=== PATIENT | male | born 1960 | race Caucasian/White ===

== ENCOUNTER → 2023-12-03 | Outpatient (CLI) | payer MEDICARE ==
--- NOTE | 2023-12-03 12:29 | US ---
EXAMINATION TYPE: US arterial LE single level DATE OF EXAM: 12/03/2023 9:06 AM CLINICAL INDICATION: Male, 63 years old with history of L97.822 NON-PRESSURE CHRONIC ULCER OF OTHER P ART O; left BK amputation, all 5 digits on the right foot amputated also, ulcer on stump of left leg History of: Smoker: previous Hypertension: y Diabetic: y Hyperlipidemia: n TIA/CVA: n Previous Vascular Surgery: n CAD: n SC: n Vascular Ulcers: y Claudication: n Gangrene: n Doppler Waveforms: Right: Multiphasic Left: Multiphasic Right Brachial Pressure: 163 Left Brachial Pressure: 171 Ankle-Brachial Indices: Right: CNO Left thigh due to amputation: CNO Toe Brachial Indices: Right: amputated Left: amputated IMPRESSION: No brachial ankle indices are able to be obtained.
== END | disposition home or self-care (01) ==
LOC: RADUSWWP 08:39
PROVIDERS: ATTEND Thoracic Surgery (Cardiothoracic Vascular Surgery)
DX: E08.622 Diabetes mellitus due to underlying condition with other skin ulcer (principal); L97.822 Non-pressure chronic ulcer of other part of left lower leg with fat layer exposed; I10 Essential (primary) hypertension; E78.5 Hyperlipidemia, unspecified; T87.89 Other complications of amputation stump
CPT/HCPCS: 93922

== ENCOUNTER → 2023-12-12 | Outpatient (CLI) | payer MEDICARE ==
--- NOTE | 2023-12-12 11:54 | XR ---
EXAMINATION TYPE: XR knee complete LT DATE OF EXAM: 12/12/2023 COMPARISON: None HISTORY: 63-year-old male L KNEE/LEG XR M25.562 XR KNEE/LEG L TECHNIQUE: AP, oblique, and lateral views FINDINGS: Meniscal chondrocalcinosis. Generalized muscle atrophy. Below the knee amputation is noted. There may be some shallow ulceration of the anterior stump margin. No klaudia underlying lytic bony destruction is seen. Vascular calcifications. Mild anterior infrapatellar soft tissue swelling. No acute fracture seen. IMPRESSION: 1. BKA. There may be shallow soft tissue ulceration along the anterior stump margin. No klaudia radiogr aphic findings of underlying osteomyelitis at this time. Radiographic follow-up if clinically indicat ed. 2. Mild anterior infrapatellar soft tissue swelling.
== END | disposition home or self-care (01) ==
LOC: RADXRMAIN 11:21
PROVIDERS: ATTEND Surgery
DX: T87.89 Other complications of amputation stump (principal); M79.89 Other specified soft tissue disorders; Z89.512 Acquired absence of left leg below knee

== ENCOUNTER 2024-01-17 06:14 | Inpatient (IN) | payer MEDICARE ==
[2024-01-17] MEDS ORDERED: droPERidol 5 MG/2 ML VIAL IVP ONE (06:44)
[2024-01-17] MEDS: LIDOCAINE 1% (10MG/ML) FOR IV START INTRADERMA PRN (07:00)
[2024-01-17] MEDS: LACTATED RINGERS 1,000 ML IV SCH (07:00)
[2024-01-17] MEDS ORDERED: HYDROmorphone 0.5 MG/0.5 ML SYRINGE IVP PRN (07:00)
[2024-01-17] MEDS: DEXAMETHASONE SOD PHOSPHATE 4 MG/ML 1 ML VIAL IV ONE (07:15)
[2024-01-17] MEDS: ONDANSETRON 4 MG/2 ML VIAL IVP ONE (07:15)
[2024-01-17 07:18] LABS: Basophils # (A) 0.1 k/uL (0-0.2); Basophils % (A) 0 %; Eosinophils # (A) 0.1 k/uL (0-0.7); Eosinophils % (A) 1 %; HCT 48.1 % (39.0-53.0); HGB 16.3 gm/dL (13.0-17.5); Lymphocytes # (A) 0.9 k/uL (1.0-4.8); Lymphocytes % (A) 5 %; MCH 29.7 pg (25.0-35.0); MCHC 33.9 g/dL (31.0-37.0); MCV 87.7 fL (80.0-100.0); Mean Platelet Volume 8.9; Monocytes % (A) 6 %; Neutrophils % (A) 87 %; Platelet Count 189 k/uL (150-450); RBC 5.48 m/uL (4.30-5.90); RDW 15.3 % (11.5-15.5); WBC 17.3 k/uL (3.8-10.6)
[2024-01-17 07:21] LABS: Glucose,Whole Blood 187 mg/dL (70-110)
[2024-01-17] MEDS ORDERED: fentaNYL (PF) 50 MCG/ML 2 ML AMP ONE (07:28)
[2024-01-17] MEDS ORDERED: NEOSTIGMINE 1 MG/ML 10 ML VIAL ONE (07:28)
[2024-01-17] MEDS ORDERED: PROPOFOL 10 MG/ML 20 ML VIAL IV ONE (07:28)
[2024-01-17] MEDS ORDERED: HYDROmorphone (PF) 1 MG/ML ONE (07:28)
[2024-01-17] MEDS ORDERED: GLYCOPYRROLATE 0.2 MG/ML 2 ML VIAL ONE (07:28)
[2024-01-17] MEDS ORDERED: MIDAZOLAM 2 MG/2 ML VIAL ONE (07:28)
[2024-01-17] MEDS ORDERED: PHENYLEPHRINE-0.9% NACL SYG 1,000 MCG/10 ML SYRINGE ONE (07:28)
[2024-01-17] MEDS ORDERED: SUCCINYLCHOLINE CHLORIDE 200 MG/10 ML VIAL IV ONE (07:28)
[2024-01-17] MEDS ORDERED: LIDOCAINE 1% INJ 10MG/ML (20 ML MDV) ONE (07:28)
[2024-01-17] MEDS ORDERED: ROCURONIUM 10 MG/ML (5 ML VIAL) IV ONE (07:28)
[2024-01-17 07:34] LABS: African American GFR (CKD) 68 (>60 ml/min/1.73 sqM); Anion Gap 14 mmol/L; Blood Urea Nitrogen 38 mg/dL (9-20); Calcium 9.6 mg/dL (8.4-10.2); Carbon Dioxide 20 mmol/L (22-30); Chloride 100 mmol/L (98-107); Glucose 212 mg/dL (74-99); Non-African American GFR(CKD) 59 (>60 ml/min/1.73 sqM); Potassium 4.2 mmol/L (3.5-5.1); Sodium 134 mmol/L (137-145)
[2024-01-17 07:53] VITALS: RESP 16
[2024-01-17] MEDS: ceFAZolin 2 GM in SODIUM CHLORIDE 0.9% 500 ML 500 ML IRRIGATION ONE (08:01)
[2024-01-17] MEDS: LACTATED RINGERS 1,000 ML IV ONE ×2 (08:25→09:24)
[2024-01-17 09:24] LABS: Glucose,Whole Blood 190 mg/dL (70-110)
[2024-01-17 09:26] VITALS: TEMP 98.1
--- NOTE | 2024-01-17 09:56 | P.OP ---
Date of Procedure: 01/17/24 Description of Procedure: Preoperative diagnosis: Previous left lower extremity below-knee amputation, nonhealing left below-knee amputation wound Postoperative diagnosis: Same Procedure: Revision of left below-knee amputation, placement of skin substitute EpiFix 4 x 4.5 cm Surgeon: Natty Brown D.O. EBL: 15 cc IV fluids: See records Urine output: Not measured Drains: None Complications: None immediately apparent Condition: Stable to recovery Operative indication and findings: Patient is a 63-year-old male who has a longstanding history of a left low knee amputation many years ago who recently developed a nonhealing wound. After workup and evaluation there was no evidence of osteomyelitis or significant infection therefore the likeliest reason was due to a bone fragment and elongated fibular remnant therefore the decision was made to go forward with revision. Risk and benefits were discussed. He seems understood and is willing to proceed. Procedure in detail: Patient was taken to the operative suite and placed in supine position. Left lower extremities prepped and draped in usual sterile fashion. A preprocedural timeout was performed, all parties were in agreement. The previous incision was incised and the area of the wound was excised sharply. This was carried down to the level of the fibula. It was cut back with a rongeur and rasp for approximately 1 cm. There was some chronic inflammatory tissue as well that was excised sharply. The area was then completely irrigated . There was no evidence of bony infection or purulent drainage therefore at this time the decision was made to place a skin substitute. A piece of EpiFix was placed in the wound itself after appropriate irrigation. Hemostasis had been achieved with electrocautery. The deep tissue was reapproximated interrupted sutures of 3-0 Vicryl. The skin was reapproximated with vertical mattress 3-0 nylon. Dressing was placed. The patient tolerated the procedure well and was transferred to recovery. Plan - Discharge Summary Discharge Rx Participant: Yes New Discharge Prescriptions: No Action Multivitamins, Thera [Multivitamin (formulary)] 1 tab PO QAM Ibuprofen [Motrin Ib] 600 mg PO Q8H PRN PRN Reason: Pain Insulin Glargine [Lantus Vial] 34 unit SQ HS metFORMIN HCL 1,000 mg PO BID Lisinopril-Hctz 20-25 mg [Zestoretic 20-25] 1 tab PO QAM Glimepiride 1 mg PO QAM Atorvastatin [Lipitor] 10 mg PO HS Discharge Medication List Atorvastatin [Lipitor] 10 mg PO HS 01/15/24 [History] Glimepiride 1 mg PO QAM 01/15/24 [History] Ibuprofen [Motrin Ib] 600 mg PO Q8H PRN 01/15/24 [History] Insulin Glargine [Lantus Vial] 34 unit SQ HS 01/15/24 [History] Lisinopril-Hctz 20-25 mg [Zestoretic 20-25] 1 tab PO QAM 01/15/24 [History] Multivitamins, Thera [Multivitamin (formulary)] 1 tab PO QAM 01/15/24 [History] metFORMIN HCL 1,000 mg PO BID 01/15/24 [History] Follow up Appointment(s)/Referral(s): Natty Brown DO [STAFF PHYSICIAN] - 2 Weeks Activity/Diet/Wound Care/Special Instructions: Resume regular activity. Continue nonuse of the prosthetic. May shower in 2 days. Continue with dressing in place. Continue home medications. Discharge Disposition: HOME SELF-CARE
[2024-01-17 10:11] VITALS: BP 120/60; PULSE 85
== END 2024-01-17 10:18 | disposition home or self-care (01) | DRG 465 ==
LOC: 2ORMAIN 06:14
PROVIDERS: ADMIT Surgery; ATTEND Surgery
PROC: 0HRLXK3 Replacement of Left Lower Leg Skin with Nonautologous Tissue Substitute, Full Thickness, External Approach (ICD-10-PCS; principal; 2024-01-17 07:30)
PROC: 0QBK0ZZ Excision of Left Fibula, Open Approach (ICD-10-PCS; principal; 2024-01-17 07:30)
DX: T87.89 Other complications of amputation stump (principal); E11.51 Type 2 diabetes mellitus with diabetic peripheral angiopathy without gangrene; I10 Essential (primary) hypertension; E78.5 Hyperlipidemia, unspecified; M19.90 Unspecified osteoarthritis, unspecified site; K21.9 Gastro-esophageal reflux disease without esophagitis
CPT/HCPCS: 80048; 85025